=== PATIENT | female | born 1975 | race Caucasian/White ===

== ENCOUNTER 2017-07-11 16:49 | Emergency (ER) | payer BC ==
[2017-07-11 16:54] VITALS: RESP 16; TEMP 98.2
[2017-07-11] MEDS ORDERED: IBUPROFEN 600 MG TAB PO ONE ×2 (17:06→17:16)
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
[2017-07-11] MEDS ORDERED: OXYCODONE/APAP 5/325MG PREPACK#4 BTL TAKEHOME ONE (17:54)
[2017-07-11 18:12] VITALS: BP 124/71; PULSE 80; O2SAT 96
== END 2017-07-11 18:12 | disposition home or self-care (01) ==
DX: S42.031A Displaced fracture of lateral end of right clavicle, initial encounter for closed fracture (principal); S60.222A Contusion of left hand, initial encounter; S40.211A Abrasion of right shoulder, initial encounter; V18.0XXA Pedal cycle driver injured in noncollision transport accident in nontraffic accident, initial encounter; Y92.410 Unspecified street and highway as the place of occurrence of the external cause; Y99.8 Other external cause status; Y93.55 Activity, bike riding
CPT/HCPCS: A4565